=== PATIENT | male | born 2005 | race Caucasian/White ===

== ENCOUNTER 2023-01-06 15:49 | Emergency (ER) | payer OTHER ==
[2023-01-06] MEDS ORDERED: Sodium Chloride 0.9% 1,000 ML IV ONE (15:58)
[2023-01-06] MEDS ORDERED: Ondansetron 4 MG/2 ML SDV IVPUSH ONE (15:59)
[2023-01-06 16:12] LABS: BASOPHILS PERCENT AUTO 0.3 % (0.2-1.2); EOSINOPHILS ABSOLUTE AUTO 0.1 x10^3/uL (0.0-0.5); EOSINOPHILS PERCENT AUTO 0.6 % (0.0-4.0); HEMATOCRIT 38.2 % (40.0-52.0); HEMOGLOBIN 14.6 g/dL (14.0-18.0); IMMATURE GRAN ABSOLUTE AUTO 0.01 x10^3/uL (0.00-0.07); LYMPHOCYTES ABSOLUTE AUTO 0.6 x10^3/uL (1.0-4.8); LYMPHOCYTES PERCENT AUTO 6.2 % (25.0-50.0); MEAN CORPUSCULAR HEMOGLOBIN 33.5 pg (26.0-32.0); MEAN CORPUSCULAR HGB CONC 38.2 g/dL (32.0-36.0); MEAN CORPUSCULAR VOLUME 87.6 fL (78.0-93.0); MONOCYTES ABSOLUTE AUTO 0.8 x10^3/uL (0.0-0.8); MONOCYTES PERCENT AUTO 8.3 % (2.0-11.0); NEUTROPHILS ABSOLUTE AUTO 8.4 x10^3/uL (1.8-7.7); NEUTROPHILS PERCENT AUTO 84.5 % (50.0-80.0); PLATELET COUNT,PLT 186 x10^3/uL (130-400); RED BLOOD CELL COUNT 4.36 x10^6/uL (4.5-6.0)
[2023-01-06] MEDS ORDERED: Metoprolol Tartrate 5 MG/5 ML SDV IVPUSH ONE (16:13)
[2023-01-06 16:34] LABS: A/G RATIO 1.45; ALANINE AMINOTRANSFERASE,ALT 19 U/L (16-63); ALBUMIN 4.2 g/dL (3.4-5.0); ALKALINE PHOSPHATASE 120 U/L (46-116); ASPARTATE AMNIOTRANSFERASE,AST 21 U/L (15-37); BILIRUBIN TOTAL 0.7 mg/dL (0.2-1.0); BLOOD UREA NITROGEN,BUN 14 mg/dL (7-18); CALCIUM 9.1 mg/dL (8.5-10.1); CARBON DIOXIDE,CO2 26 mmol/L (21-32); CHLORIDE,CL 103 mmol/L (98-107); CREATINE KINASE,CK 261 U/L (39-308); GLUCOSE RANDOM 84 mg/dL (70-99); POTASSIUM,K 4.1 mmol/L (3.5-5.1); PRO B-TYPE NATRIUR PEPT,BNPPRO 78 pg/mL (<=125); PROTEIN TOTAL,TP 7.1 g/dL (6.4-8.2); SODIUM,NA 141 mmol/L (136-145)
[2023-01-06 16:35] LABS: ANION GAP 16.1 mmol/L (5-15); ESTIMATED GFR 111 mL/min (>=60)
[2023-01-06 16:46] LABS: CORONAVIRUS COVID-19 NAA POSITIVE (NEGATIVE)
[2023-01-06 16:47] LABS: INFLUENZA A NAA NEGATIVE (NEGATIVE); INFLUENZA B NAA NEGATIVE (NEGATIVE); RESPIRATORY SYNCYTIAL VIR NAA NEGATIVE (NEGATIVE)
[2023-01-06] MEDS ORDERED: Ketorolac 15 MG/ML SDV IVPUSH ONE (16:56)
== END 2023-01-06 18:01 | disposition critical access hospital (66) ==
LOC: VM.ED 15:49
DX: U07.1 COVID-19 (principal); R55 Syncope and collapse; I49.3 Ventricular premature depolarization; Z91.198 Patient's noncompliance with other medical treatment and regimen for other reason; I49.8 Other specified cardiac arrhythmias; Z79.899 Other long term (current) drug therapy
CPT/HCPCS: 0241U; 36415; 71045; 80053; 82550; 83880; 84484; 85025; 93010; 96361; 96374; 96375; 99284; 99285-25; J1885; J2405; J3490; J7030